=== PATIENT | female | born 1990 | race Asian ===

== ENCOUNTER 2020-12-06 05:23 | Inpatient (IN) | payer OTHER, MEDICAID ==
--- NOTE | 2020-12-05 21:39 | History and Physical Report ---
History of Present Illness Date of examination: 12/03/20 History of present illness: Patient been admitted for primary section due to previous delivery complicated by fourth degree laceration. Menstrual History Regularity: regular Menses every: 28-30 days Duration: 5-6 LMP: 03/06/2020 LMP reliability: definite LMP character: normal test type: urine test Date: 05/16/2020 BC at conception: none EDC Calculations LMP: 12/11/2020 EDC Confirmation: 12/11/2020 Past History : 2 Term Births: 1 Premature Births: 0 Living Children: 1 Para: 1 Mult. Births: 0 Prev : 0 Prev. attempt? 0 Aborta: 0 Elect. Ab: 0 Spont. Ab: 0 Ectopics: 0 # 1 Delivery date: 11/20/2012 Weeks Gestation: 39 Delivery type: Vaginal Anesthesia type: epidural Delivery location: [facility] Infant Sex: male weight: 6.94 Name: Collin Comments: 4th degree laceration Past Medical History: Negative Past Medical History Past Surgical History: negative Past Medical History Anesthesia Complications: negative Anemia: negative Autoimmune Disorder: negative Bleeding Disorder: negative Blood Transfusions: negative Breast Disease: negative Diabetes: negative Heart Disease: negative Hypertension: negative Hepatitis/Liver Disease: negative Kidney Disease/UTI: negative Neurologic/Epilepsy/Migraines: negative Phlebitis/Varicosities: negative Psychiatric: negative Pulmonary Disease/Asthma: negative Thyroid Disease: negative Hospitalizations: negative Surgery (Non-patient liaison): negative Abnormal PAP: negative JAMIE Exposure: negative Infertility: negative Uterine Anomaly: negative Uterine Surgery (not C/S): negative Other Gynecologic Problems: negative Social Hx: Patient is single Unemployed Infection History Hx of STD: none HIV Risk Eval: low risk Hepatitis B Risk Eval: low risk Personal hx. of genital herpes: no Partner hx. of genital herpes: no Rash, Viral, or Febrile illness since last LMP? no Varicella/Chicken Pox Status: Previous Disease TB Risk: no Genetic History Congenital Heart Defect: Mom: no Dad: no Dayana Disease: Mom: no Dad: no Thalassemia Mom: no Dad: no Neural Tube Defect Mom: no Dad: no Down's Syndrome Mom: yes Dad: no Comments: Mother's brother Galindo-Sachs Mom: no Dad: no Sickle Cell Disease/Trait Mom: yes Dad: no Comments: Patient Hemophilia Mom: no Dad: no Muscular Dystrophy Mom: no Dad: no Cystic Fibrosis Mom: no Dad: no Crook Chorea Mom: no Dad: no Mental Retardation Mom: no Dad: no Fragile X Mom: no Dad: no Other Genetic/Chromosomal Disorder Mom: no Dad: no Child w/other defect Mom: no Dad: no Enviromental Exposures Xray Exposure: no Medication, drug, or alcohol use since LMP: no Chemical/Other Exposure: no Exposure to Cat Liter: no Hx of Parvovirus (Fifth Disease): no Occupational Exposure to Children: none Current Allergies (reviewed today): * NKDA (Critical) Past History Past Medical History: other (SEE HPI) Past Surgical History: no surgical history, other ENGLISH [employer]ER History: other (SEE HPI) Social history: full code, other (SEE HPI) - Obstetrical History Expected Date of Delivery: 12/11/20 Actual Gestation: 39 Week(s) 2 Day(s) : 2 Para: 1 Hx # Term Pregnancies: 1 Number of Pregnancies: 0 Spontaneous Abortions: 0 Induced : 0 Number of Living Children: 1 Medications and Allergies Allergies Allergy/AdvReac Type Severity Reaction Status Date / Time No Known Allergies Allergy Verified 11/19/12 03:29 Home Medications Medication Instructions Recorded Confirmed Last Taken Type Vitamin 1 tab PO DAILY 12/06/20 12/06/20 12/05/20 09:00 History 1 tab Review of Systems Constitutional: weight gain Eyes: deferred Ears, nose, mouth and throat: deferred - Physical Exam Breasts: Positive: deferred Cardiovascular: Regular rate Lungs: Positive: Normal air movement Abdomen: Positive: normal appearance Genitourinary (Female): Positive: normal external genitalia Uterus: Positive: enlarged - Obstetrical FHR: auscultation normal Results Result Diagrams: 12/06/20 05:45 All other labs normal. Assessment and Plan - Patient Problems (1) H/O maternal fourth degree perineal laceration, currently Current Visit: No Status: Acute Plan to address problem: Patient desires primary cesearen section. Discuss the risks of the surgery including infection, bleeding possibly heavy enough to require a blood transfusion, possible damage to bowel, bladder or ureter. Her questions were answered. Patient understands and desires to proceed (2) with 39 completed weeks gestation Current Visit: No Status: Acute
[~2020-12-06 05:23] MED LIST: BICITRA ORAL LIQD 30ML PO ONE; FAMOTIDINE 20 MG/2 ML INJ IV ONE; LACTATED RINGERS 1,000 ML IV SCH; METOCLOPRAMIDE 10 MG/2 ML INJ IV ONE; OXYTOCIN DRIP 30 UNITS/500 ML BAG IV SCH
[2020-12-06] MEDS ORDERED: LACTATED RINGERS 1,000 ML ONE ×2 (05:38→08:41)
[2020-12-06 06:06] LABS: Basophils # (Auto) 0.2 K/mm3 (0.0-0.1); Basophils % (Auto) 1.4 % (0.0-1.8); Eosinophils # (Auto) 0.3 K/mm3 (0.0-0.4); Eosinophils % (Auto) 2.1 % (0.0-4.3); Hemoglobin 10.3 gm/dl (10.1-14.3); Lymphocytes # (Auto) 2.8 K/mm3 (1.2-5.4); Lymphocytes % (Auto) 18.2 % (13.4-35.0); Monocytes # (Auto) 1.3 K/mm3 (0.0-0.8); Monocytes % (Auto) 8.2 % (0.0-7.3)
[2020-12-06 06:12] LABS: Mean Corpuscular HGB Conc 34 % (30-34); Mean Corpuscular Volume 92 fl (79-97); Platelet Count 326 K/mm3 (140-440); Red Blood Count 3.39 M/mm3 (3.65-5.03); Red Cell Distribution Width 14.5 % (13.2-15.2)
[2020-12-06] MEDS ORDERED: ceFAZolin/Water 2 GM/20 ML 2 GM/20 ML SYRINGE IV NR (07:00)
--- NOTE | 2020-12-06 07:13 | Anesthesia Day of Surgery ---
Anesthesia Day of Surgery - Day of Surgery Patient Examined: Yes Patient H&P Reviewed: Yes Patient is NPO: Yes Beta Blockers: No Cardiac Clearance: No Pulmonary Clearance: No Chidi's Test: N/A
--- NOTE | 2020-12-06 07:14 | Anesthesia Consultation ---
Anesthesia Consult and Med Hx Date of service: 12/06/20 - Airway Anesthetic Teeth Evaluation: Good ROM Head & Neck: Adequate Mental/Hyoid Distance: Adequate Mallampati Class: Class II Intubation Access Assessment: Probably Good - Pulmonary Exam CTA: Yes - Cardiac Exam Cardiac Exam: RRR - Pre-Operative Health Status ASA Pre-Surgery Classification: ASA2 Proposed Anesthetic Plan: Spinal Nerve Block: TAP - Pulmonary Hx Smoking: No Hx Asthma: No COPD: No Hx Pneumonia: No Hx Sleep Apnea: No - Cardiovascular System Hx Hypertension: No Hx Heart Attack/AMI: No Hx Angina: No - Central Nervous System Hx Seizures: No Hx Psychiatric Problems: No - Gastrointestinal Hx Gastroesophageal Reflux Disease: No - Endocrine Hx Renal Disease: No Hx End Stage Renal Disease: No Hx Liver Disease: No Hx Insulin Dependent Diabetes: No Hx Non-Insulin Dependent Diabetes: No Hx Hypothyroidism: No Hx Hyperthyroidism: No - Hematic Hx Anemia: No Hx Sickle Cell Disease: Yes (Trait) - Other Systems Hx Alcohol Use: No - Additional Comments Anesthesia Medical History Comments: previous c/s
[2020-12-06] MEDS ORDERED: HYDROmorphone 1 MG/1 ML INJ IV PRN (07:30)
[2020-12-06] MEDS ORDERED: FAMOTIDINE 20 MG/2 ML INJ IV NR (07:30)
[2020-12-06] MEDS ORDERED: BICITRA ORAL LIQD 30ML PO NR (07:30)
[2020-12-06] MEDS ORDERED: diphenhydrAMINE 50 MG/ML VIAL IV PRN (07:30)
[2020-12-06] MEDS ORDERED: METOCLOPRAMIDE 10 MG/2 ML INJ IV NR (07:30)
[2020-12-06] MEDS ORDERED: WATER FOR IRRIG STERILE 1,500 ML BOTTLE IR ONE (07:38)
[2020-12-06] MEDS ORDERED: SODIUM CHLORIDE 0.9% IRR 1,500 ML BOTTLE IR ONE (07:38)
[2020-12-06] MEDS ORDERED: PHENYLEPHRINE/NS 1,000 MCG/10 ML SYRINGE (OR USE) IV ONE (07:45)
[2020-12-06] MEDS ORDERED: KETOROLAC 30 MG/1 ML INJ ONE (07:45)
[2020-12-06] MEDS ORDERED: BUPIVACAINE/PF (0.5%) 5 MG/1 ML 30 ML VIAL INFILTRATI ONE (07:45)
[2020-12-06] MEDS ORDERED: dexAMETHasone 20 MG/5 ML VIAL ONE (07:45)
[2020-12-06] MEDS ORDERED: ceFAZolin/STERILE WATER 2 GM/20 ML SYRINGE IV ONE (07:52)
[2020-12-06] MEDS ORDERED: NalbUPHINE 10 MG/1 ML INJ IV PRN (08:00)
[2020-12-06] MEDS ORDERED: ONDANSETRON 4 MG/2 ML INJ IV PRN (08:00)
[2020-12-06] MEDS ORDERED: PROMETHAZINE 25 MG RECT SUPP PR PRN (08:00)
[2020-12-06] MEDS ORDERED: PROMETHAZINE 25 MG TAB PO PRN (08:00)
[2020-12-06] MEDS ORDERED: NALOXONE 0.4 MG/1 ML INJ IV PRN ×2 (08:00→15:00)
--- NOTE | 2020-12-06 08:16 | Progress Note ---
Spinal Anesthesia Block - Spinal Anesthesia Block Start Time: 07:30 Stop Time: 07:36 Performed by:: RICHAR SPEARS ([facility]) Procedure: Spinal anesthesia block is being performed for [C/S]. H&P, labs have been reviewed. Patient's questions and concerns have been answered. Informed consent has been performed. Timeout has was performed. Patient in sitting position on side of bed. Sterile prep and drape was performed. 3 mL 1% lido moni skin wheal at L [3]-L [4]. Needle introducer advanced. 25-gauge spinal needle advanced, [+] CSF [-] blood. [Marcaine 10mg and Precedex 5mcg] Spinal dose was given. All needles removed. Patient tolerated procedure well.
--- NOTE | 2020-12-06 10:10 | Operative Report ---
Operative Report Operative Report: Date of procedure: December 06, 2020 Pre-operative diagnosis: Intrauterine at 39 weeks with previous fourth degree laceration desires primary section Post-operative diagnosis: Same Procedure name(s): Primary low-transverse section Surgeon: Zaki Gupta MD Electrical Engineering Teacher: SHAHRAM Anesthesia: Spinal EBL: QBL= 980 cc Complications: None Findings: Patient with a normal uterus tubes and ovaries bilaterally male infant weighing 6 pounds 2 ounces Apgars 9 at 1 minute and 9 at 5 minutes Specimen(s): None Procedure: The patient was brought to the operating room. Her spinal was placed without any complications. She was then placed in left lateral tilt. Prepped and draped in the usual sterile manner. After testing for adequate anesthesia level, a Pfannenstiel incision was made. This incision was taken down to the fascia. The fascia was then nicked in the midline. This incision was extended out laterally with Ibarra scissors. The fascia was then sharply and bluntly from the underlying rectus muscles. The rectus muscles were bluntly and sharply . The peritoneum was then entered with the non licensed operator's fingers. This incision was spread vertically with care not to damage the bladder below. The Wayne self-retaining tractor was then placed without any difficulty. The bladder flap was then formed sharply and bluntly with Metzenbaum scissors. A transverse incision was made in lower uterine segment. This incision was extended laterally with the operators fingers. The amniotic sac was then entered bluntly with the non licensed operator's fingers. The was delivered from the vertex position. Bulb suction on the mother's abdomen. Cord was double clamped and cut. The was then passed to the nursery personnel who were in attendance. The above scores were given by the nursery personnel. The placenta was then bluntly removed. The uterus was then externalized and wiped clean the remaining products. The uterine incision was closed in layers. The first incision was closed in a locking manner using 0 Vicryl. This was followed by imbricating stitch also with 0 Vicryl. This closure was hemostatic after additional Bovie cauterization. The bladder flap was copiously irrigated and found to be hemostatic. The pelvis was copiously irrigated and found to be hemostatic. The uterus was then placed back to the patient's abdomen. The retractors were removed. The rectus muscles were inspected and found to be he mostatic. The fascia was then closed in a running manner using 0 Vicryl. This incision was hemostatic irrigation Bovie. The skin was reapproximated with 4-0 Vicryl subcuticularly. The patient tolerated procedure well. Her urine was clear. The infant was admitted to the [facility] baby nursery. The patient was accompanied to recovery room in good condition. Instrument count correct times 3.
[2020-12-06] MEDS ORDERED: SIMETHICONE 80 MG CHEW TAB PO PRN (15:00)
[2020-12-06] MEDS ORDERED: WITCH HAZEL/ GLYCERIN PAD TP PRN (15:00)
[2020-12-06] MEDS ORDERED: LANOLIN/ZINC/DIMETHICONE (LANSINOH) 7 GM TP PRN (15:00)
[2020-12-06] MEDS ORDERED: HYDROcodone/ACETAMINOPHEN 5-325 MG TAB PO PRN (15:00)
[2020-12-06] MEDS ORDERED: OXYTOCIN DRIP 30 UNITS/500 ML BAG IV SCH (15:00)
[2020-12-06] MEDS: PRENATAL VIT27-FE FUMARATE-FOLIC ACID VIT TAB PO SCH (15:13)
[2020-12-06] MEDS: KETOROLAC 30 MG/1 ML INJ IV SCH ×2 (15:13→22:16)
[2020-12-06] MEDS: ceFAZolin/NS 1 GM/50 ML 1 GM/50 ML BAG IV SCH ×2 (15:18→23:18)
[2020-12-06] MEDS: FERROUS SULFATE 325 MG TAB PO SCH (15:18)
[2020-12-06] MEDS: D5W/LACTATED RINGERS 1,000 ML IV SCH ×2 (16:19→23:18)
[2020-12-06] MEDS: HYDROcodone/ACETAMINOPHEN 5-325 MG TAB PO PRN (16:20)
--- NOTE | 2020-12-06 17:24 | Post Anesthesia Evaluation ---
- Post Anesthesia Evaluation Patient Participated: Yes Airway Patent: Yes Stable Respiratory Function: Yes Nausea/Vomiting: No Temp > 96.8F: Yes Pain Manageable: Yes Adequeate Hydration: Yes Anesthesia Complications: No Block Receding Appropriately: Yes Patient on Ventilator: No
[2020-12-06 21:33] LABS: Hematocrit 26.7 % (30.3-42.9); Hemoglobin 8.9 gm/dl (10.1-14.3)
--- NOTE | 2020-12-06 21:46 | Event Note ---
Date: 12/06/20 (Pt in a lot of pain) Received a call from the RN that patient was in a lot of pain even after administration of Toradol IV and Frederick 2 tablets. Spoke with Alvin from anesthesia and the recommendation post spinal block is 0.5 mg Dilaudid q 4 hours. Orders placed for pain medication. RN aware.
[2020-12-06] MEDS ORDERED: MAGNESIUM HYDROXIDE (MOM) ORAL LIQD UDC PO PRN (22:00)
[2020-12-06] MEDS: HYDROmorphone 1 MG/1 ML INJ IV PRN (22:17)
[2020-12-07] MEDS: HYDROmorphone 1 MG/1 ML INJ IV PRN (02:06)
[2020-12-07] MEDS: KETOROLAC 30 MG/1 ML INJ IV SCH (04:05)
--- NOTE | 2020-12-07 06:15 | Progress Note ---
Assessment and Plan A: 30 y.o. s/p primary , POD #1. P: Continue with care. Encouraged ambulation. Advance diet as tolerated. Encouraged incentive spirometer use. Anticipate discharge home on 12/08. Subjective - Subjective Date of service: 12/07/20 Principal diagnosis: s/p primary , POD #1 Patient reports: appetite normal, voiding normally, flatus, ambulating normally, other (Pain control better) Norman: doing well Objective - Vital Signs Latest vital signs: Vital Signs Temp Pulse Resp BP BP Pulse Ox Pulse Ox 12/07/20 02:06 18 12/07/20 00:45 98.2 F 79 20 110/64 100 12/06/20 23:00 100 12/06/20 22:17 18 12/06/20 21:47 98.1 F 87 20 101/66 100 12/06/20 17:00 97.9 F 18 113/69 12/06/20 16:20 16 12/06/20 15:13 16 12/06/20 10:41 100 12/06/20 10:36 97.7 F 76 16 97/66 100 12/06/20 09:54 97.7 F 74 17 101/63 100 12/06/20 09:45 75 15 95/61 98 12/06/20 09:30 71 16 100/58 98 12/06/20 09:15 71 16 110/56 98 12/06/20 09:10 73 16 111/59 100 12/06/20 09:05 74 17 101/62 100 12/06/20 09:00 75 14 101/58 98 12/06/20 08:53 97.6 F 80 10 L 104/78 98 12/06/20 06:25 97 H 98 12/06/20 06:20 98 H 98 12/06/20 06:15 97 H 99 12/06/20 06:10 98 H 99 Intake and Output 12/06/20 12/06/20 12/07/20 14:59 22:59 06:59 Intake Total 7855 651 6278.917 Output Total 775 800 Balance 925 -630 1226.917 Intake: IV 1700 50 872.917 ANCEF/NS 1 GM/50 ML 1 gm 50 In 50 ml @ 100 mls/hr IV Q8H NINA Rx#:[id number] D5lr 1,000 ml @ 125 mls/ 872.917 hr IV DIRECT NINA Rx#: [id number] Oral 120 354 Output: Urine 775 800 Indwelling Catheter 800 Uretheral (Lorenzo) 300 Other: Total, Intake Amount 120 354 Total, Output Amount 800 Estimated Blood Loss 980 - Exam Narrative Exam: Pain control better now that patient is getting additional pain medication. Encouraged ambulation and incentive spirometer use. Breasts: Present: deferred Cardiovascular: Present: Regular rate Lungs: Present: Normal air movement Abdomen: Present: normal appearance, soft Vulva: both: normal Uterus: Present: normal Extremities: Present: normal Incision: Present: normal, dry, intact, other (Incision open to air. No s/sx of infection or drainage noted. ) - Labs Labs: Abnormal lab results 12/06/20 12/06/20 Range/Units 05:45 20:17 RBC 3.39 L (3.65-5.03) M/mm3 Hgb 8.9 L (10.1-14.3) gm/dl Hct 26.7 L (30.3-42.9) %
[2020-12-07] MEDS: HYDROcodone/ACETAMINOPHEN 5-325 MG TAB PO PRN ×3 (06:25→18:56)
[2020-12-07] MEDS: PRENATAL VIT27-FE FUMARATE-FOLIC ACID VIT TAB PO SCH (10:18)
[2020-12-07] MEDS: FERROUS SULFATE 325 MG TAB PO SCH (10:18)
[2020-12-07] MEDS ORDERED: IBUPROFEN 600 MG TAB PO ONE (10:28)
[2020-12-07] MEDS: IBUPROFEN 600 MG TAB PO PRN (20:45)
[2020-12-08] MEDS: HYDROcodone/ACETAMINOPHEN 5-325 MG TAB PO PRN ×3 (02:27→15:15)
[2020-12-08] MEDS: IBUPROFEN 600 MG TAB PO PRN (05:46)
[2020-12-08 08:40] VITALS: BP 107/48
--- NOTE | 2020-12-08 10:52 | Discharge Summary ---
Providers - Providers Date of Admission: 12/06/20 05:23 Date of discharge: 12/08/20 Attending physician: MOLLY FERNANDEZ 12/06/20 14:32 Consult to Manager Ed [CONS] Routine Reason For Exam: Primary care physician: MOLLY FERNANDEZ Hospitalization Reason for admission: section, IUP at term, other (With previous fourth degree laceration) Delivery: Procedure: primary low transverse Procedure details: See dictated operative note for details Incision: normal, dry, intact Other procedures: none complications: none Discharge diagnosis: IUP at term delivered [place] baby: male Hospital course: Patient was admitted for repeat section. Patient underwent the procedure without complications. Her post operative course was benign she was afebrile throughout. Patient postoperative day 1 hematocrit was in an acceptable range. Patient had no orthostatic symptoms. Patient was tolerating regular diet and voiding without difficulty at time of discharge. Patient incision was healing well without evidence of infection. Patient plans to bottle when breast-feed and desires Mirena for her control plans. Condition at discharge: Good Disposition: 01 HOME / SELF CARE / HOMELESS - Discharge Diagnoses (1) H/O maternal fourth degree perineal laceration, currently Status: Chronic (2) with 39 completed weeks gestation Status: Acute (3) delivery delivered Status: Acute Plan - Discharge Medications Prescriptions: Lidocain2.5%/Prilocai2.5% [Emla] 5 gm TP ONCE #1 tube Ferrous Sulfate [Feosol 325 MG tab] 325 mg PO BID #60 tablet Ibuprofen [Motrin] 800 mg PO TID PRN #30 tablet PRN Reason: Pain oxyCODONE /ACETAMINOPHEN [Percocet 5/325 mg] 1 - 2 tab PO Q6HR PRN #20 tablet PRN Reason: Pain - Provider Discharge Summary Activity: routine, no sex for 6 weeks, no strenuous exercise Diet: routine Instructions: routine Additional instructions: [] Smoking cessation referral if applicable(refer to patient education folder for contact #) [] Refer to [facility] Booklet Call your doctor immediately for: * Fever > 100.5 * Heavy vaginal bleeding ( >1 pad per hour) * Severe persistent headache * Shortness of breath * Reddened, hot, painful area to leg or breast * Drainage or odor from incision. * Keep incision clean and dry at all times and follow doctor's instructions regarding bathing/showering Patient to called office to schedule her son circumcision - Follow up plan Follow up: MOLLY FERNANDEZ MD [Primary Care Provider] - 7 Days
[2020-12-08] MEDS: FERROUS SULFATE 325 MG TAB PO SCH (11:27)
[2020-12-08] MEDS: PRENATAL VIT27-FE FUMARATE-FOLIC ACID VIT TAB PO SCH (11:27)
== END 2020-12-08 15:18 | disposition home or self-care (01) | DRG 788 ==
LOC: APU 05:23 → OB 12:58
PROVIDERS: ADMIT Obstetrics & Gynecology; ATTEND Obstetrics & Gynecology
PROC: 10D00Z1 Extraction of Products of Conception, Low, Open Approach (ICD-10-PCS; principal; 2020-12-06)
DX: O34.211 Maternal care for low transverse scar from previous cesarean delivery (principal); Z20.822 Contact with and (suspected) exposure to COVID-19; Z3A.39 39 weeks gestation of pregnancy; Z37.0 Single live birth; Z56.0 Unemployment, unspecified
CPT/HCPCS: 36415; 59025; 85014; 85018; 85025; 86592; 86850; 86900; 86901; 99211; G0378; G0463; J0690; J1100; J1170; J1885; J2370; J2765; J3490; J7120; J7121; U0003